=== PATIENT | female | born 1985 | race Hispanic/Latino ===

== ENCOUNTER 2018-03-23 15:06 | Emergency (ER) | payer BC ==
[2018-03-23 15:33] VITALS: BP 109/72; PULSE 82; RESP 16; TEMP 98.3; O2SAT 99
--- NOTE | 2018-03-23 16:13 | ED PDOC ---
Lower Extremity Pain/Injury Time Seen by Provider: 03/23/18 15:34 Chief Complaint (Nursing): Lower Extremity Problem/Injury Chief Complaint (Provider): right ankle pain History Per: Patient History/Exam Limitations: no limitations Onset/Duration Of Symptoms: Hrs (1 hour) Current Symptoms Are (Timing): Still Present Additional Complaint(s): 33 y/o female presents to the ED with pain to right ankle. Patient states she was walking upstairs and twisted her right ankle about 1 hour prior to ED arrival. Patient was initially ok but then felt sudden "excruciating pain" prompting her visit to the ED. She denies taking any pain medications prior to arrival. she denies any numbness or tingling to affected area. PMD: Dr. Pablito Hampton, [facility] - Ankle/Foot Description Of Injury: Fell, Twisted Past Medical History Reviewed: Historical Data, Nursing Documentation, Vital Signs Vital Signs: Last Vital Signs Temp 98.3 F 03/23/18 15:31 Pulse 82 03/23/18 15:31 Resp 16 03/23/18 15:31 BP 109/72 03/23/18 15:31 Pulse Ox 99 03/23/18 15:31 - Medical History PMH: No Chronic Diseases - Surgical History Other surgeries: wisdom teeth removal - Family History Family History: States: No Known Family Hx - Living Arrangements Living Arrangements: With Friends/Others - Social History Current smoker - smoking cessation education provided: No Ex-Smoker (has not smoked in the last 12 months): No Alcohol: Social Drugs: Denies - Allergies Allergies/Adverse Reactions: Allergies Allergy/AdvReac Type Severity Reaction Status Date / Time No Known Allergies Allergy Verified 03/23/18 15:31 Review of Systems ROS Statement: Except As Marked, All Systems Reviewed And Found Negative Musculoskeletal: Positive for: Foot Pain (right ankle injury) Physical Exam - Reviewed Nursing Documentation Reviewed: Yes Vital Signs Reviewed: Yes - Physical Exam Appears: Positive for: Well, Non-toxic, No Acute Distress Skin: Positive for: Normal Color. Negative for: Rash Eye Exam: Positive for: Normal appearance Extremity: Positive for: Other (swelling and tenderness to right lateral maleollus with normal sensation). Negative for: Tenderness (right foot), Calf Tenderness (right calf) Neurologic/Psych: Positive for: Alert, Oriented (x3) - Laboratory Results Urine POC: Negative - ECG O2 Sat by Pulse Oximetry: 99 (RA) Pulse Ox Interpretation: Normal - Other Rad right ankle x-ray X-Ray: Interpreted by Me, Viewed By Me X-Ray Interpretation: no fx, no dis, mild STS Medical Decision Making Medical Decision Making: Time: 15:31 Impression: 33 y/o female with right ankle injury Initial Plan: * test * Motrin 600 mg PO * Right ankle X-Ray Patient is aware of x-ray results. All questions answered. Crutches declined. See procedure note. Patient advised to take NSAIDs for pain as needed. She was referred to electrician on-call for follow up. Scribe Attestation: Documented by Mercedes Song acting as a scribe Zandra Savage PA-C. Scribe Attestation: All medical record entries made by the Scribe were at my direction and personally dictated by me. I have reviewed the chart and agree that the record accurately reflects my personal performance of the history, physical exam, medical decision making, and the department course for this patient. I have also personally directed, reviewed, and agree with the discharge instructions and disposition. Procedures - Splinting Location: right ankle Pre-Made Type: sarah beth wrap and aircast Pre-Proc Neuro Vasc Exam: normal Post-Proc Neuro Vasc Exam: normal Disposition - Clinical Impression Clinical Impression: Right ankle sprain - Patient ED Disposition Is Patient to be Admitted: No Counseled Patient/Family Regarding: Studies Performed, Diagnosis, Need For Followup - Disposition Referrals: Nichole Caicedo DPM [Staff Provider] - Disposition: Routine/Home Disposition Time: 16:41 Condition: STABLE Additional Instructions: Ice, rest and elevate affected area. Take over the counter advil for pain as needed. Follow up as needed with electrician. Instructions: Ankle Sprain (DC) Forms: [employer] (Georgian)
--- NOTE | 2018-03-23 17:31 | RAD ---
PROCEDURE: Right Ankle Radiographs. HISTORY: trauma COMPARISON: None FINDINGS: BONES: Bone alignment and mineralization are normal. There is no acute displaced fracture or bone destruction. JOINTS: Normal. Ankle mortise maintained. Talar dome intact SOFT TISSUES: Normal. OTHER FINDINGS: None. IMPRESSION: No acute fracture or dislocation.
== END 2018-03-23 17:03 | disposition home or self-care (01) ==
LOC: H.ER 15:06
DX: S93.401A Sprain of unspecified ligament of right ankle, initial encounter (principal); X50.9XXA Other and unspecified overexertion or strenuous movements or postures, initial encounter; Y92.89 Other specified places as the place of occurrence of the external cause